=== PATIENT | male | born 1980 | race Caucasian/White ===

== ENCOUNTER 2024-03-17 20:09 | Emergency (ER) | payer OTHER, SELFPAY ==
[2024-03-17 20:19] VITALS: BP 136/97
--- NOTE | 2024-03-17 20:51 | ED.GENMED ---
History of Present Illness
General
Chief Complaint: Crisis Evaluation
Source: patient and spouse
Time Seen by Provider: 03/17/24 20:31
History of Present Illness
History of Present Illness:
44 year old male with PMH of anxiety/depression/panic disorder who presents to the ER for evaluation of suicidal ideations over the last few days stating that he wants to take an excess amount of his pills. Patient has history of similar and has
been to [facility] in the past. States today he did take 3 extra ativan to calm his nerves but states this did not help. Denies any physical concerns at this time. Of note, patient had his paxil increased to 37.5mg PO daily
Past History
Past History
ED Past Medical History: Hypercholesterolemia and Psychiatric
Social History
Tobacco: Non-smoker
Alcohol: None
Drug: None
Personal:
Living: with family
Employment: Employed
Review of Systems
Review of Systems
All Other Systems: ROS reviewed and negative except as documented in HPI and ROS
Phy Exam
Physical Exam
Physical Exam:
GENERAL: Alert , in no apparent distress
EYE: conjunctiva clear
Head: Normocephalic atraumatic
NECK: Supple
ENT: mmm.
LUNGS: no acute respiratory distress
NEUROLOGICAL: Alert and oriented
SKIN: Warm and dry, skin intact.
MUSCULOSKELETAL: well perfused.
PSYCH: Normal and appropriate interaction.
Scores
Heart Failure Risk
Heart Failure Risk Score: Not Applicable
Heart Score for Chest Pain Patients
STEMI patient?: Not applicable
Withdrawal Assessment of Alcohol
Withdrawal Assessment Completed?: Not applicable
Course
Orders/Labs/Results
Orders:
Orders
03/17/24 20:27
1:1 Observation - Suicide/ Violent Behavior As Directed
Crisis Consult Urgent
Reason for Consult: suicidal ideation
03/17/24 21:07
Complete Blood Count/With Diff Urgent
Comprehensive Metabolic Panel Urgent
03/17/24 21:09
Fentanyl, Urine Urgent
Urine Drug Abuse Screen Urgent
Date Specimen was Collected: 03/17/24
Time Specimen was Collected: 21:08
Abnormal Lab Results
03/17/24
21:09
Ur Oxycodone Screen Positive H
(Negative)
U Benzodiazepines Scrn Positive H
(Negative)
U Marijuana (THC) Screen Positive H
(Negative)
03/17/24 21:07
03/17/24 21:07
Vital Signs
Initial and Last Documented VS:
Initial Vital Signs
Temp Pulse Resp BP Pulse Ox
97.5 F 89 20 136/97 97
03/17/24 20:19 03/17/24 20:19 03/17/24 20:19 03/17/24 20:19 03/17/24 20:19
Last Documented Vital Signs
Temp Pulse Resp BP Pulse Ox
98.0 F 83 20 131/89 95
03/17/24 21:00 03/17/24 21:00 03/17/24 20:19 03/17/24 21:00 03/17/24 21:00
MDM/Problems Addressed
MDM/Problems Addressed:
44 year old male presenting to the ER for evaluation of increased depression with suicidal thoughts with plan to take excess pills. No physical concerns. NAD. Will order screening labs and UDS. Crisis team notified and will evaluate patient.
*Pulse Oximetry
Patient hypoxic: no
*Critical Care Note
Total Time (30-74mins, 75-104mins- exclusive of procedures): Not Applicable
Data Reviewed
Review of Other/Old Records Reveals: Records
Source: patient and spouse
ED Attending Note
-
Portions of this chart may have been created with voice recognition software.� Occasional wrong word or��sound alike� substitutions may have occurred due to the inherent limitations of voice recognition software.
Discharge Plan
Departure
Patient Disposition: [facility]
Date of Disposition: 03/17/24
Time of Disposition: 20:57
Discharge Problem:
Depression
Interventions
Interventions:
*Risk Screen - Suicide Last Done: 03/17/24 20:19
*General Assessment Last Done: 03/17/24 20:19
*Neglect/Abuse Screening Last Done: 03/17/24 20:19
ED- Fall Risk Assessment Last Done: 03/17/24 20:19
*ED COVID-19 Vaccine History Last Done: 03/17/24 20:19
*Nursing Disposition Last Done: 03/17/24 21:46
ED-Psychological Assessment Last Done: 03/17/24 21:06
Discharge Date and Time
Discharge Date/Time: 03/17/24 22:13
Print Language: MALDIVIAN
[2024-03-17 20:57] VITALS: BMI 32.3
[2024-03-17 21:00] VITALS: BP 131/89
[2024-03-17 21:15] LABS: % Basophils 0.5 % (0-2); % Eosinophils 1.2 % (0-6); % Immature Granulocytes 0.3 % (0-0.5); % Lymphocytes 26.6 % (20.5-51.1); % Monocytes 6.3 % (1.7-9.3); % Neutrophils 65.1 % (42.2-75.2); Absolute Eosinophils 0.1 10^3/uL (0-0.7); Absolute Lymphocytes 2.3 10^3/uL (1.2-3.4); Absolute Monocytes 0.6 10^3/uL (0.1-0.6); Absolute Neutrophils 5.7 10^3/uL (1.4-6.5); Hematocrit 41.9 % (39.0-52.0); Hemoglobin 15.4 g/dL (13.0-18.0); Mean Corp Hgb Conc. 36.8 g/dL (33.0-37.0); Mean Corpuscular Hgb 29.8 pg (27.0-31.0); Mean Platelet Volume 9.6 fL (7.4-10.4); Nucleated Red Blood Cells % 0 % (-); Platelet Count 211 10^3/uL (130-400); Red Blood Cell Count 5.17 10^6/uL (4.70-6.10); Red Cell Dist. Width 13.3 % (11.5-14.5); White Blood Cell Count 8.7 10^3/uL (4.8-10.8)
[2024-03-17 21:29] LABS: Amphetamines Negative (Negative); Barbiturates Negative (Negative); Benzodiazepines Positive (Negative); Buprenorphine Negative (Negative); Cocaine Negative (Negative); Marijuana Positive (Negative); Methadone Negative (Negative); Methamphetamines Negative (Negative); Opiates Negative (Negative); Phencyclidine Negative (Negative); Tricyclic Antidepressants Negative (Negative)
[2024-03-17 21:32] LABS: ALT (SGPT) 46 U/L (0-50); AST (SGOT) 31 U/L (17-59); Albumin 4.5 g/dl (3.5-5.0); Alkaline Phosphatase 73 U/L (38-126); Blood Urea Nitrogen 9 mg/dl (9-20); Calcium 9.5 mg/dl (8.4-10.2); Carbon Dioxide 24 mmol/L (22-30); Chloride 103 mmol/L (98-107); Estimated Creatinine Clearance 101 ml/min; Glucose 91 mg/dl (70-99); Potassium 4.2 mmol/L (3.5-5.1); Sodium 141 mmol/L (135-145); Total Bilirubin 0.7 mg/dl (0.2-1.3); Total Protein 6.8 g/dl (6.3-8.2); eGFR > 60.00
[2024-03-17 21:46] LABS: Fentanyl, Urine Negative (Negative)
== END 2024-03-17 22:13 ==
LOC: EMR 20:09
PROVIDERS: Physician Assistant Medical; EMERGENCY PHYSICIAN Emergency Medicine
DX: F32.A Depression, unspecified (principal); F41.9 Anxiety disorder, unspecified
CPT/HCPCS: 99283; 80053; 80306; 80307; 85025

== ENCOUNTER 2024-03-17 22:51 | Emergency (ER) | payer OTHER, SELFPAY ==
[2024-03-17 22:54] VITALS: BP 136/103
[2024-03-17 22:56] VITALS: BP 136/103
[2024-03-17 23:05] VITALS: BMI 31.6
[2024-03-17] MEDS: XANAX 1 MG PO (23:27)
[2024-03-17 23:47] VITALS: BP 137/84
[2024-03-18] MEDS: XANAX 1 MG PO (00:03)
--- NOTE | 2024-03-18 00:15 | ED.GENMED ---
History of Present Illness
General
Chief Complaint: Crisis Evaluation
Source: patient and family
Exam Limitations: none
Time Seen by Provider: 03/17/24 23:03
Nursing documentation reviewed up to this point in time: agreed with
History of Present Illness
History of Present Illness:
44-year-old male presents with anxiety. Was seen here earlier today and medically cleared to go to crisis. Patient is voluntarily signing himself in to a psychiatric hospital. From crisis, he requested more anxiety medication. Patient was told
that he needed to recheck into the ER for anxiety medication. He checked back in. Patient complaining of anxiety. Denies suicidal or homicidal ideation, intent, or plan. He is accompanied by a family member.
Past History
Past History
ED Past Medical History: Hypercholesterolemia and Psychiatric
Social History
Tobacco: Non-smoker
Alcohol: None
Drug: None
Personal:
Living: with family
Employment: Employed
Review of Systems
Review of Systems
Allergies reviewed?: Yes
Other source history: family
All Other Systems: ROS reviewed and negative except as documented in HPI and ROS
Constitutional: Reports no symptoms
EENT: Reports no symptoms
Respiratory: Reports no symptoms
Cardiac: Reports no symptoms
ABD/GI: Reports no symptoms
: Reports no symptoms
Musculoskeletal: Reports no symptoms
Skin: Reports no symptoms
Neurological: Reports no symptoms
Endocrine: Reports no symptoms
Hematologic/Lymphatic: Reports no symptoms
Psychiatric: Reports anxiety
Phy Exam
General Physical Exam
General Presentation: well appearing and mild distress
General age: appears stated age
General Skin: warm and dry
General Habitus: normal
General Mental: alert and anxious
General Hydration: appears well hydrated
ENT Exam
ENT Exam: pharynx normal, neck supple and normocephalic
Eye Exam
Eye Exam: PERRL, cornea clear and conjunctiva normal
Cardiovascular Exam
Cardiovascular Exam: regular rate/rhythm, no edema, no murmur and normal peripheral pulses
Pulmonary Exam
Pulmonary Exam: lungs clear, no respiratory distress, no rales, no crackles, no rhonchi, no stridor, no wheezing and no cough
Gastrointestinal Exam
Gastrointestinal Exam: non distended
Neurological Exam
Neurological Exam: alert, oriented x3, no motor deficits and speech normal
Musculoskeletal Exam
Musculoskeletal Exam: full ROM, no edema and neuro vasc intact
Skin Exam
Skin Exam: normal color, warm/dry, no rash and no petechia
Psychiatric Exam
Psychiatric Exam: anxious
Course
Orders/Labs/Results
Orders:
Orders
03/17/24 23:00
1:1 Observation - Suicide/ Violent Behavior As Directed
Comment: .
03/17/24 23:22
Alprazolam [Xanax] 1 mg PO NOW STA
03/18/24 00:01
Alprazolam [Xanax] 1 mg PO NOW STA
Vital Signs
Initial and Last Documented VS:
Initial Vital Signs
Temp Pulse Resp BP Pulse Ox
97.7 F 78 20 136/103 97
03/17/24 22:54 03/17/24 22:54 03/17/24 22:54 03/17/24 22:54 03/17/24 22:54
Last Documented Vital Signs
Temp Pulse Resp BP Pulse Ox
97.4 F 77 20 137/84 95
03/17/24 23:47 03/17/24 23:47 03/17/24 22:56 03/17/24 23:47 03/17/24 23:47
*Critical Care Note
Total Time (30-74mins, 75-104mins- exclusive of procedures): Not Applicable
Update Note
Update Note:
Patient resting comfortably, was sleeping intermittently. Vital signs were monitored. Patient ready for discharge. He has no questions at this time.
ED Attending Note
-
Portions of this chart may have been created with voice recognition software.� Occasional wrong word or��sound alike� substitutions may have occurred due to the inherent limitations of voice recognition software.
Discharge Plan
Departure
Patient Disposition: [facility]
Date of Disposition: 03/18/24
Time of Disposition: 01:02
Condition: Good
Discharge Problem:
Anxiety
Instructions: Anxiety, Adult (DC), BLOOD PRESSURE
Referrals:
[facility] [Active] - Next open appointment
UNKNOWN - PT DOES,NOT KNOW [Family Provider] -
Interventions
Interventions:
*Risk Screen - Suicide Last Done: 03/17/24 22:56
*General Assessment Last Done: 03/17/24 22:56
*Neglect/Abuse Screening Last Done: 03/17/24 22:56
ED- Fall Risk Assessment Last Done: 03/17/24 22:56
*ED COVID-19 Vaccine History Last Done: 03/17/24 22:56
ED-Psychological Assessment Last Done: 03/17/24 23:04
Discharge Date and Time
Print Language: DUTCH
--- NOTE | 2024-03-18 00:56 | PTCARENOTE ---
pt came back over to ED from crisis d/t wanting something for anxiety. pt and very verbally upset about being put into crisis room again. pts states 'he isnt here for crisis this time, hes here medically'. pt and pts wanting to know
why he is being put into a crisis room instead of a 'normal room' and pts states this is ridiculous. this RN got charge nurse to speak with them. pt received 1mg of xanax. pt and pts expressed that he will need more and '1mg isnt going to
cut it', 'we came back over here for 1mg, thats ridiculous'. dr trejo notified, educated pt to wait and see if medication helps. when this RN went to re-evaluate pts anxiety, pt stated he felt the same. pt received another 1mg tab of xanax.
after an hour, pt states he feels better. pt will be sent back over to crisis once D'Cd.
== END 2024-03-18 01:22 ==
LOC: EMR 22:51
PROVIDERS: EMERGENCY PHYSICIAN Student in an Organized Health Care Education/Training Program
DX: F41.9 Anxiety disorder, unspecified (principal); E78.00 Pure hypercholesterolemia, unspecified
CPT/HCPCS: 99283